=== PATIENT | male | born 1950 | race Caucasian/White ===

== ENCOUNTER → 2018-01-12 11:30 | Outpatient (CLI) | payer MEDICARE, BC, SELFPAY ==
--- NOTE | 2018-01-12 11:30 | LES_PTH ---
PATIENT: HONORIO SOL LOC: [facility] U#:[id number] AGE/SX: 74/M ROOM: RE01/12/[address]: Dr. Efrain Montanez MD : 1950 BED: DIS: SPEC #: [id number] RECD: 01/12/18 13:56 STATUS: TOM SHIMON #: [id number] LEE: 01/12/18 11:[address]: Efrain Montanez DEPT: SURGICAL PATHOLOGY RECD BY: Balaji Powell Tissues: Upper eyelid, NOS Procedures: Surgery Specimen Level III HEADER OPERATION: RUL lesion excision PRE-OP DIAGNOSIS: Increased size of lesion TISSUE SUBMITTED: RUL lesion MICROSCOPIC DIAGNOSIS Left upper eyelid lesion, biopsy: Consistent with epidermal inclusion cyst. AM:shazia 01/13/18 MICROSCOPIC DESCRIPTION Slides are reviewed. GROSS DESCRIPTION Received in fixative is one container labeled with the patient's name and designated RUL. The specimen consists of a piece of lew-white soft tissue measuring 0.2 x 0.2 x 0.1 cm. The specimen is totally submitted in one cassette. / SJ:shazia 01/12/18 TC:5 CPT: [id number]
== END ==
PROVIDERS: Referring Provider Ophthalmology; Visit Provider Ophthalmology
DX: H02.89 Other specified disorders of eyelid (principal)
CPT/HCPCS: 88304; 88305

== ENCOUNTER → 2023-08-11 | Outpatient (CLI) | payer BC, MEDICARE, SELFPAY ==
[2023-08-11 15:30] LABS: PSA,Total - Annual Screen 6.88 ng/mL (0.00-4.00)
== END | disposition home or self-care (01) ==
PROVIDERS: PCP Physician Assistant; Referring Provider Nurse Practitioner; Visit Provider Nurse Practitioner
DX: Z12.5 Encounter for screening for malignant neoplasm of prostate (principal)
CPT/HCPCS: 36415; 84153; G0103

== ENCOUNTER → 2023-11-17 | Outpatient (CLI) | payer BC, SELFPAY ==
[2023-11-18 13:08] LABS: PSA, Free 1.42 ng/mL; PSA, Free % 27.4 % (.)
== END | disposition home or self-care (01) ==
PROVIDERS: PCP Physician Assistant; Referring Provider Urology; Visit Provider Urology
DX: R97.20 Elevated prostate specific antigen [PSA] (principal)
CPT/HCPCS: 36415; 84153; 84154

== ENCOUNTER → 2024-06-27 | Outpatient (CLI) | payer BC, SELFPAY ==
[2024-06-27 13:54] LABS: PSA,Total- Diagnostic 3.88 ng/mL (0.00-4.00)
== END | disposition home or self-care (01) ==
PROVIDERS: PCP Physician Assistant; Referring Provider Nurse Practitioner; Visit Provider Nurse Practitioner
DX: R97.20 Elevated prostate specific antigen [PSA] (principal)
CPT/HCPCS: 36415; 84153